=== PATIENT | male | born 1960 | race Caucasian/White ===

== ENCOUNTER 2022-11-08 21:57 | Observation (INO) ==
[2022-11-08] MEDS ORDERED: Metoclopramide 5 MG/ML VIAL (10 mg) IV ONE (22:04)
[2022-11-08] MEDS ORDERED: Lactated Ringers 1000 ml BAG 1,000 ML IV ONE (22:04)
[2022-11-08 23:55] LABS: Venous Bicarbonate HCO3 17.6 mmol/L (24-28)
[2022-11-08 23:57] LABS: ABS Lymphocytes 1.6 10^3/uL (1.0-4.8); ABS Monocytes 0.7 10^3/uL (0.0-1.1); ABS Neutrophils 10.5 10^3/uL (1.5-7.6); ABS Nucleated RBC 0.03 10^3/ul; Hematocrit 50.1 % (38-53); Hemoglobin 16.9 g/dL (13.2-16.3); Lymphocyte % 12.5 %; Mean Corpuscular Hemoglobin 30.4 pg (27-33); Mean Corpuscular Hgb Conc 33.7 g/dL (31-36); Mean Corpuscular Volume 90.4 fL (80-97); Mean Platelet Volume 8.1 fL (7.5-11.2); Nucleated Red Blood Cells % 0.2 /100 WBC (0.0-0.4); Platelet Count 318 10^3/uL (150-450); Red Blood Count 5.54 10^6/uL (4.06-5.63); Red Cell Distribution Width 14.3 % (12-17); White Blood Count 12.9 10^3/uL (3.6-10.2)
[2022-11-09 00:19] LABS: Albumin 4.9 g/dL (3.2-5.2); Albumin/Globulin Ratio 1.4 (1-3); Calcium 9.5 mg/dL (8.6-10.3); Creatinine, Serum 1.53 mg/dL (0.67-1.17); Globulin 3.6 g/dL (2-4); Magnesium 2.8 mg/dL (1.9-2.7); Potassium 4.1 mmol/L (3.5-5.0); Total Bilirubin 0.6 mg/dL (0.2-1.0); Total Protein 8.5 g/dL (6.4-8.9); eGFR CKD-EPI 51.7 (>60)
[2022-11-09] MEDS ORDERED: Iodixanol (CONTRAST) 320 MG/ML 100 ML SDV IV ONE (00:25)
[2022-11-09] MEDS ORDERED: Lactated Ringers 1000 ml BAG 1,000 ML IV ONE (00:30)
[2022-11-09] MEDS ORDERED: Magnesium Sulfate 2 gm BAG 2 GM/50 ML BAG IVPB ONE (01:25)
[2022-11-09] MEDS ORDERED: Dextrose 50% Syringe 50 ml 25 GM/50 ML SYRINGE IV PUSH PRN ×2 (03:27→14:23)
[2022-11-09] MEDS ORDERED: D5W 1000 ml BAG 1,000 ML IV SCH (04:00)
[2022-11-09] MEDS ORDERED: Insulin Infusion 100unit/100mL 100 UNIT/100 ML BAG IV SCH ×2 (04:00→18:30)
[2022-11-09 06:35] LABS: Calcium 9.5 mg/dL (8.6-10.3); Creatinine, Serum 1.45 mg/dL (0.67-1.17); Magnesium 2.6 mg/dL (1.9-2.7); Potassium 4.1 mmol/L (3.5-5.0); eGFR CKD-EPI 55.2 (>60)
[2022-11-09 06:36] LABS: Calcium 9.5 mg/dL (8.6-10.3); Creatinine, Serum 1.42 mg/dL (0.67-1.17); Magnesium 2.6 mg/dL (1.9-2.7); Phosphorus 3.7 mg/dL (2.5-5.0); Potassium 4.2 mmol/L (3.5-5.0); eGFR CKD-EPI 56.6 (>60)
[2022-11-09 09:39] LABS: Blood Urea Nitrogen 36 mg/dL (6-24); CO2 Carbon Dioxide 17 mmol/L (22-32); Calcium 8.8 mg/dL (8.6-10.3); Chloride 99 mmol/L (101-111); Creatinine, Serum 1.24 mg/dL (0.67-1.17); Glucose 218 mg/dL (70-100); Sodium 138 mmol/L (135-145); eGFR CKD-EPI 66.6 (>60)
[2022-11-09 09:44] LABS: Anion Gap 22 mmol/L (2-16)
[2022-11-09] MEDS: Enoxaparin 40 MG/0.4 ML SYR SUBCUT SCH (10:30)
[2022-11-09] MEDS: POTASSIUM CHLORIDE IVPB SCH ×2 (10:30→18:12)
[2022-11-09] MEDS: D5LR IVPB SCH ×2 (10:30→18:12)
[2022-11-09] MEDS: Potassium Chloride IV 40 MEQ in Lactated Ringers 1000 ml BAG 1,000 ML IVPB SCH (10:39)
[2022-11-09 11:52] LABS: Calcium 9.1 mg/dL (8.6-10.3); Creatinine, Serum 1.33 mg/dL (0.67-1.17); Magnesium 2.6 mg/dL (1.9-2.7); Phosphorus 3.3 mg/dL (2.5-5.0); Potassium 3.6 mmol/L (3.5-5.0); eGFR CKD-EPI 61.2 (>60)
[2022-11-09 14:26] LABS: Blood Urea Nitrogen 32 mg/dL (6-24); CO2 Carbon Dioxide 24 mmol/L (22-32); Calcium 9.4 mg/dL (8.6-10.3); Chloride 103 mmol/L (101-111); Creatinine, Serum 1.31 mg/dL (0.67-1.17); Glucose 164 mg/dL (70-100); Sodium 140 mmol/L (135-145); eGFR CKD-EPI 62.3 (>60)
[2022-11-09 14:31] LABS: Anion Gap 13 mmol/L (2-16)
[2022-11-09 15:21] LABS: Calcium 9.7 mg/dL (8.6-10.3); Creatinine, Serum 1.34 mg/dL (0.67-1.17); Magnesium 2.7 mg/dL (1.9-2.7); Potassium 3.9 mmol/L (3.5-5.0); eGFR CKD-EPI 60.6 (>60)
[2022-11-09] MEDS: Ondansetron 4 mg VIAL 2 MG/ML 2 ml VIAL IV PRN (16:53)
[2022-11-09 17:47] LABS: Blood Urea Nitrogen 29 mg/dL (6-24); CO2 Carbon Dioxide 20 mmol/L (22-32); Calcium 8.9 mg/dL (8.6-10.3); Chloride 101 mmol/L (101-111); Creatinine, Serum 1.23 mg/dL (0.67-1.17); Glucose 227 mg/dL (70-100); Sodium 138 mmol/L (135-145); eGFR CKD-EPI 67.2 (>60)
[2022-11-09 17:58] LABS: Anion Gap 17 mmol/L (2-16)
[2022-11-09] MEDS ORDERED: Sodium Chloride CONC. 4 MEQ/ML 38.5 MEQ in D10W 1000 ml BAG 1,000 ML IV SCH (19:00)
[2022-11-09] MEDS: Insulin Infusion 100unit/100mL 100 UNIT/100 ML BAG IV SCH (19:36)
[2022-11-09 19:52] LABS: Calcium 9.1 mg/dL (8.6-10.3); Creatinine, Serum 1.17 mg/dL (0.67-1.17); Magnesium 2.5 mg/dL (1.9-2.7); Phosphorus 3.1 mg/dL (2.5-5.0); eGFR CKD-EPI 71.4 (>60)
[2022-11-09 23:48] LABS: Blood Urea Nitrogen 26 mg/dL (6-24); CO2 Carbon Dioxide 19 mmol/L (22-32); Calcium 8.4 mg/dL (8.6-10.3); Chloride 98 mmol/L (101-111); Creatinine, Serum 1.14 mg/dL (0.67-1.17); Glucose 272 mg/dL (70-100); Magnesium 2.3 mg/dL (1.9-2.7); Sodium 136 mmol/L (135-145); eGFR CKD-EPI 73.6 (>60)
[2022-11-09 23:52] LABS: Anion Gap 19 mmol/L (2-16)
[2022-11-10 00:22] LABS: Phosphorus 3.4 mg/dL (2.5-5.0)
[2022-11-10] MEDS: Sodium Chloride CONC. 4 MEQ/ML 38.5 MEQ in D10W 1000 ml BAG 1,000 ML IV SCH ×2 (00:30→06:32)
[2022-11-10] MEDS: D5LR IVPB SCH ×2 (01:54→11:38)
[2022-11-10] MEDS: POTASSIUM CHLORIDE IVPB SCH ×2 (01:54→11:38)
[2022-11-10] MEDS: Insulin Infusion 100unit/100mL 100 UNIT/100 ML BAG IV SCH ×2 (02:42→06:32)
[2022-11-10 04:11] LABS: Urine Appearance Clear; Urine Bilirubin Negative (Negative); Urine Blood Negative (Negative); Urine Color Straw; Urine Glucose 3+(>=500 mg/dL) (Negative); Urine Ketones 1+ (Negative); Urine Nitrite Negative (Negative); Urine Protein Negative (Negative); Urine Specific Gravity 1.016 (1.002-1.030); Urine Urobilinogen Negative (Negative)
[2022-11-10 04:13] LABS: Calcium 8.3 mg/dL (8.6-10.3); Creatinine, Serum 1.15 mg/dL (0.67-1.17); Magnesium 2.5 mg/dL (1.9-2.7); Phosphorus 2.6 mg/dL (2.5-5.0); Potassium 3.5 mmol/L (3.5-5.0); eGFR CKD-EPI 72.9 (>60)
[2022-11-10] MEDS: Ondansetron 4 mg VIAL 2 MG/ML 2 ml VIAL IV PRN (05:15)
[2022-11-10 08:50] LABS: Hematocrit 43.6 % (38-53); Hemoglobin 14.9 g/dL (13.2-16.3); Mean Corpuscular Hemoglobin 30.5 pg (27-33); Mean Corpuscular Hgb Conc 34.2 g/dL (31-36); Mean Corpuscular Volume 89.2 fL (80-97); Mean Platelet Volume 7.5 fL (7.5-11.2); Platelet Count 287 10^3/uL (150-450); Red Blood Count 4.89 10^6/uL (4.06-5.63); Red Cell Distribution Width 13.4 % (12-17); White Blood Count 14.7 10^3/uL (3.6-10.2)
[2022-11-10 09:15] LABS: Blood Urea Nitrogen 21 mg/dL (6-24); CO2 Carbon Dioxide 26 mmol/L (22-32); Calcium 8.6 mg/dL (8.6-10.3); Chloride 102 mmol/L (101-111); Creatinine, Serum 1.14 mg/dL (0.67-1.17); Glucose 141 mg/dL (70-100); Sodium 139 mmol/L (135-145); eGFR CKD-EPI 73.6 (>60)
[2022-11-10 09:20] LABS: Anion Gap 11 mmol/L (2-16)
[2022-11-10] MEDS: Enoxaparin 40 MG/0.4 ML SYR SUBCUT SCH (09:24)
[2022-11-10 09:31] LABS: ABS Basophils 0.1 10^3/uL (0.0-0.1); ABS Monocytes 1.9 10^3/uL (0.0-1.1); ABS Neutrophils 9.7 10^3/uL (1.5-7.6); ABS Nucleated RBC 0.01 10^3/ul; Lymphocyte % 20.7 %; Nucleated Red Blood Cells % 0.1 /100 WBC (0.0-0.4)
[2022-11-10] MEDS ORDERED: Insulin GLARGINE 100 un/ml 10 ml VIAL SUBCUT ONE (11:06)
[2022-11-10 12:31] LABS: Calcium 8.4 mg/dL (8.6-10.3); Creatinine, Serum 1.04 mg/dL (0.67-1.17); Potassium 3.5 mmol/L (3.5-5.0); eGFR CKD-EPI 82.2 (>60)
[2022-11-10 16:02] LABS: Calcium 8.8 mg/dL (8.6-10.3); Creatinine, Serum 1.05 mg/dL (0.67-1.17); Potassium 3.7 mmol/L (3.5-5.0); eGFR CKD-EPI 81.3 (>60)
[2022-11-10 17:17] VITALS: BP 129/81
== END 2022-11-10 17:55 | disposition home or self-care (01) ==
LOC: ED 21:57 → EDHOLD 11-09 03:57 → INTOOBSV 11-09 03:57 → ICU 11-09 07:51
PROVIDERS: ADMIT Internal Medicine Critical Care Medicine; ATTEND Internal Medicine Critical Care Medicine